=== PATIENT | female | born 1960 | race African-American/Black ===

== ENCOUNTER → 2021-11-15 | Outpatient (CLI) | payer BC ==
[2021-11-15 09:39] LABS: BASOPHILS % 0.8 % (0.0-2.0); EOSINOPHILS % 1.7 % (0.0-5.0); HEMATOCRIT. 43.4 % (36.0-48.0); HEMOGLOBIN. 14.9 g/dL (12.0-16.0); LYMPHOCYTES % 36.9 % (20.0-50.0); MEAN CORPUSCULAR VOLUME 84.4 fL (81.0-99.0); MEAN PLATELET VOLUME 6.8 fl (7.4-10.4); MONOCYTES % 5.3 % (2.0-8.0); NEUTROPHILS % 55.3 % (40.0-76.0); PLATELET 247 x1000/uL (130-400); RED BLOOD CELL COUNT 5.14 mill/uL (4.2-5.4); RED CELL DISTRIBUTION WIDTH 12.9 % (11.6-14.6)
[2021-11-15 09:46] LABS: CHLORIDE 106 mEq/L (98-107)
[2021-11-15 09:53] LABS: LDL CHOLESTEROL 87 mg/dL (5-100)
[2021-11-15 09:55] LABS: AMYLASE 79 IU/L (25-115); HDL CHOLESTEROL 56 mg/dL (40-59)
[2021-11-15 10:01] LABS: TOTAL IRON BINDING CAPACITY 350 ug/dL (250-450)
[2021-11-15 11:19] LABS: CLARITY URINE CLEAR (CLEAR); COLOR URINE YELLOW (YELLOW); KETONES URINE NEGATIVE (NEGATIVE); LEUKOCYTE ESTERASE URINE TRACE (NEGATIVE); NITRITE URINE NEGATIVE (NEGATIVE); OCCULT BLOOD URINE NEGATIVE (NEGATIVE); PH URINE 6.5 (4.5-8.0); PROTEIN URINE NEGATIVE (NEGATIVE); SPECIFIC GRAVITY URINE 1.023 (1.005-1.030); UROBILINOGEN URINE 0.2 E.U./dL (0.2-1.0)
== END | disposition home or self-care (01) ==
LOC: LAB 09:00
PROVIDERS: ATTEND Internal Medicine Nephrology
DX: I10 Essential (primary) hypertension (principal); D50.0 Iron deficiency anemia secondary to blood loss (chronic); D63.1 Anemia in chronic kidney disease; E78.49 Other hyperlipidemia; E66.3 Overweight; E78.5 Hyperlipidemia, unspecified; K76.0 Fatty (change of) liver, not elsewhere classified; N39.0 Urinary tract infection, site not specified; R73.03 Prediabetes
CPT/HCPCS: 36415; 80053; 80061; 81003; 82150; 82728; 83036; 83540; 83550; 85025; 85044

== ENCOUNTER 2021-12-27 14:00 | Emergency (ER) | payer BC ==
[~2021-12-27] VITALS: Ht 154.9 cm; Wt 68.5 kg
[2021-12-27] MEDS ORDERED: ACETAMINOPHEN 325MG TABLET PO ONE (14:45)
[2021-12-27 16:28] VITALS: BP 160/92
== END 2021-12-27 16:31 | disposition home or self-care (01) ==
LOC: ER 14:12
DX: S09.8XXA Other specified injuries of head, initial encounter (principal); I10 Essential (primary) hypertension; E78.00 Pure hypercholesterolemia, unspecified; Y08.89XA Assault by other specified means, initial encounter; Y93.89 Activity, other specified; Y92.238 Other place in hospital as the place of occurrence of the external cause
CPT/HCPCS: 70486; 99284

== ENCOUNTER 2022-01-06 15:34 | Emergency (ER) | payer BC, OTHER ==
[~2022-01-06] VITALS: Ht 154.9 cm; Wt 67.0 kg
[2022-01-06] MEDS ORDERED: MECLIZINE 25MG TABLET PO ONE (16:45)
[2022-01-06] MEDS ORDERED: ACETAMINOPHEN 325MG TABLET PO ONE (17:00)
[2022-01-06 17:40] LABS: BASOPHILS % 0.9 % (0.0-2.0); EOSINOPHILS % 1.8 % (0.0-5.0); HEMATOCRIT. 44.3 % (36.0-48.0); LYMPHOCYTES % 41.6 % (20.0-50.0); MEAN CORPUSCULAR HEMOGLOBIN 28.8 pg (28.0-32.0); MEAN CORPUSCULAR VOLUME 85.1 fL (81.0-99.0); MEAN PLATELET VOLUME 7.2 fl (7.4-10.4); MONOCYTES % 5.9 % (2.0-8.0); NEUTROPHILS % 49.8 % (40.0-76.0); PLATELET 272 x1000/uL (130-400); RED BLOOD CELL COUNT 5.21 mill/uL (4.2-5.4); RED CELL DISTRIBUTION WIDTH 13.2 % (11.6-14.6)
[2022-01-06 17:53] LABS: CHLORIDE 106 mEq/L (98-107)
[2022-01-06 20:00] VITALS: BP 133/59
[2022-01-06] MEDS ORDERED: MECL-159 MT (20:49)
== END 2022-01-06 16:48 | disposition home or self-care (01) ==
LOC: ER 15:34
DX: R42 Dizziness and giddiness (principal); E78.00 Pure hypercholesterolemia, unspecified; I10 Essential (primary) hypertension
CPT/HCPCS: 36415; 80053; 82962; 84484; 85025; 93005; 99285; J8597